=== PATIENT | female | born 1995 | race Caucasian/White ===

== ENCOUNTER 2016-11-26 18:27 | Emergency (ER) | payer OTHER ==
[~2016-11-26] VITALS: Ht 165.1 cm; Wt 74.0 kg
[2016-11-26 18:28] VITALS: BP 147/65; TEMP 97.7; O2SAT 100
--- NOTE | 2016-11-26 19:23 | PD ---
HPI Chief Complaint: Abdominal Pain Time Seen by Provider: 19:23 Travel History International Travel<30 days: No Contact w/Intl Traveler<30days: No Traveled to known affect area: No History of Present Illness HPI 21 year-old female presents to the emergency department for evaluation of epigastric abdominal pain worsening over last 2 weeks. Patient has now become nauseous and has been vomiting throughout the day. Reports chills without fever. No hematemesis or hematochezia. Bowel movements have been normal. No urinary symptoms. Patient's last menstrual cycle was 2 weeks ago and she denies any chance of . Denies any vaginal discharge or bleeding. Pain is a 8 out of 10, constant, sharp, burning. Patient has no history of abdominal surgeries. No other symptoms to report at this time. [facility] Past Medical History Medical History: Denies Significant Hx ?: Not LMP: 11/16/2016 Social History Alcohol Use: No Tobacco Use: No Substance Use: No Allergies-Medications (Allergen,Severity, Reaction): Coded Allergies: No Known Allergies (Unverified , 11/26/16) Reported Meds & Prescriptions Reported Meds & Active Scripts Active No Active Prescriptions or Reported Medications Review of Systems Except as stated in HPI: all other systems reviewed are Neg Physical Exam Narrative GENERAL: Well-nourished female patient, in no acute distress SKIN: Focused skin assessment warm/dry. HEAD: Atraumatic. Normocephalic. EYES: Pupils equal and round. No scleral icterus. No injection or drainage. ENT: No nasal bleeding or discharge. Mucous membranes pink and moist. NECK: Trachea midline. No JVD. CARDIOVASCULAR: Regular rate and rhythm. No murmur appreciated. RESPIRATORY: No accessory muscle use. Clear to auscultation. Breath sounds equal bilaterally. GASTROINTESTINAL: Abdomen soft, nondistended. Mild epigastric tenderness to palpation. Rebound tenderness. No guarding. Hepatic and splenic margins not palpable. MUSCULOSKELETAL: No obvious deformities. No clubbing. No cyanosis. No edema. NEUROLOGICAL: Awake and alert. No obvious cranial nerve deficits. Motor grossly within normal limits. Normal speech. PSYCHIATRIC: Appropriate mood and affect; insight and judgment normal. Data Data Last Documented VS Vital Signs Date Time Temp Pulse Resp B/P Pulse Ox O2 Delivery O2 Flow Rate FiO2 11/26/16 19:35 20 11/26/16 18:28 97.7 55 147/65 100 Orders Complete Blood Count With Diff (11/26/16 19:44) Comprehensive Metabolic Panel (11/26/16 19:44) Lipase (11/26/16 19:44) Urinalysis - C+S If Indicated (11/26/16 19:44) Iv Access Insert/Monitor (11/26/16 19:44) Ecg Monitoring (11/26/16 19:44) Oximetry (11/26/16 19:44) Ondansetron Inj (Zofran Inj) (11/26/16 19:45) Pantoprazole Inj (Protonix Inj) (11/26/16 19:45) Sodium Chlor 0.9% 1000 Ml Inj (Ns 1000 M (11/26/16 19:44) Sodium Chloride 0.9% Flush (Ns Flush) (11/26/16 19:45) Al-Mag Hy-Si 40-40-4 Mg/Ml Liq (Mag-Al P (11/26/16 19:45) Lidocaine 2% Viscous (Xylocaine 2% Visco (11/26/16 19:45) Ed Urine Pregnancytest Poc (11/26/16 19:44) Labs Laboratory Tests Test 11/26/16 19:45 White Blood Count 13.9 TH/MM3 Red Blood Count 5.18 MIL/MM3 Hemoglobin 13.5 GM/DL Hematocrit 40.5 % Mean Corpuscular Volume 78.1 FL Mean Corpuscular Hemoglobin 26.1 PG Mean Corpuscular Hemoglobin 33.4 % Concent Red Cell Distribution Width 15.2 % Platelet Count 297 TH/MM3 Mean Platelet Volume 9.6 FL Neutrophils (%) (Auto) 79.0 % Lymphocytes (%) (Auto) 14.9 % Monocytes (%) (Auto) 5.6 % Eosinophils (%) (Auto) 0.2 % Basophils (%) (Auto) 0.3 % Neutrophils # (Auto) 11.0 TH/MM3 Lymphocytes # (Auto) 2.1 TH/MM3 Monocytes # (Auto) 0.8 TH/MM3 Eosinophils # (Auto) 0.0 TH/MM3 Basophils # (Auto) 0.0 TH/MM3 CBC Comment DIFF FINAL Differential Comment Urine Color YELLOW Urine Turbidity HAZY Urine pH 6.5 Urine Specific [place] 1.024 Urine Protein TRACE mg/dL Urine Glucose (UA) NEG mg/dL Urine Ketones 150 mg/dL Urine Occult Blood NEG Urine Nitrite NEG Urine Bilirubin NEG Urine Urobilinogen 2.0 MG/DL Urine Leukocyte Esterase TRACE Urine RBC 1 /hpf Urine WBC 2 /hpf Urine Squamous Epithelial 9 /hpf Cells Urine Bacteria RARE /hpf Urine Mucus FEW /lpf Microscopic Urinalysis Comment CULT NOT INDICATED MDM Medical Decision Making Medical Screen Exam Complete: Yes Emergency Medical Condition: Yes Medical Record Reviewed: Yes Differential Diagnosis Gastritis versus pancreatitis versus cholecystitis versus cholelithiasis versus biliary colic Narrative Course 21 year-old female presents to emergency department for evaluation of epigastric pain. Patient appears overall well. Her vital signs are stable. IV access and lab work are obtained. Patient is given IV fluids, antiemetic, and GI cocktail. CBC is with mild leukocytosis of 13.9. CMP is pending. Urinalysis is hazy with 150 ketones, trace leukocyte esterase, rare bacteria, few mucus. Culture is not indicated. 2044 patient is signed out to Dr. morejon who will assume care at this time. Disposition will pend his judgment. Scripts No Active Prescriptions or Reported Meds Condition: Stable Simran Lacy Nov 26, 2016 19:23
[2016-11-26] MEDS ORDERED: SODIUM CHLOR 0.9% 1000 ML INJ 1,000 ML IV SCH (19:44)
[2016-11-26] MEDS ORDERED: ALUMINUM/MAGNESIUM/SIMETH 30 ML CUP PO ONE (19:45)
[2016-11-26] MEDS ORDERED: LIDOCAINE VISCOUS 2% SOLN 15 ML UDC PO ONE (19:45)
[2016-11-26] MEDS ORDERED: PANTOPRAZOLE SODIUM 40 MG VIAL IVP ONE (19:45)
[2016-11-26] MEDS ORDERED: ONDANSETRON HCL 4 MG/2 ML VIAL IVP ONE (19:45)
[2016-11-26] MEDS ORDERED: SODIUM CHLORIDE 0.9% FLUSH 10 ML FLUSH IV FLUSH PRN (19:45)
[2016-11-26 20:00] VITALS: O2SAT 99
[2016-11-26 20:36] LABS: BASOPHIL % 0.3 % (0.0-2.0); EOSINOPHIL % 0.2 % (0.0-4.0); HEMATOCRIT 40.5 % (35.0-46.0); HEMO FLAGS DIFF FINAL; LYMPH % 14.9 % (9.0-44.0); LYMPHOCYTE # 2.1 TH/MM3 (1.0-4.8); MEAN CELL VOLUME 78.1 FL (80.0-100.0); MEAN CORPUSCULAR HEMOGLOBIN 26.1 PG (27.0-34.0); MEAN CORPUSCULAR HGB CONC 33.4 % (32.0-36.0); MONO % 5.6 % (0.0-8.0); PLATELET COUNT 297 TH/MM3 (150-450); RED BLOOD COUNT 5.18 MIL/MM3 (4.00-5.30); RED CELL DISTRIBUTION WIDTH 15.2 % (11.6-17.2); WHITE BLOOD COUNT 13.9 TH/MM3 (4.0-11.0)
[2016-11-26 20:42] LABS: BACTERIA, URINE RARE /hpf; BLOOD, URINE NEG (NEG); COMMENT (UR) CULT NOT INDICATED; CULTURE IF INDICATED CULT NOT INDICATED; GLUCOSE,URINE NEG (NEG); KETONE, URINE 150 mg/dL (NEG); MUCUS URINE FEW /lpf (OCC); NITRITE,URINE NEG (NEG); PH, URINE 6.5 (5.0-8.5); SQUAMOUS EPITHELIAL CELL URINE 9 /hpf (0-5); URINE COLOR YELLOW (YELLW/STRAW)
[2016-11-26 21:00] LABS: ANION GAP 13 MEQ/L (5-15); AST (GOT) 35 U/L (16-38); BICARBONATE 23.1 MEQ/L (21.0-32.0); BLOOD UREA NITROGEN 9 MG/DL (7-18); CHLORIDE 103 MEQ/L (98-107); GLOMERULAR FILTRATION RATE 73 ML/MIN (>89); SODIUM (NA) 139 MEQ/L (136-145)
[2016-11-26 21:01] LABS: POTASSIUM 3.7 MEQ/L (3.5-5.1)
[2016-11-26 21:03] LABS: ALKALINE PHOSPHATASE 72 U/L (45-117); ALT (GPT) 24 U/L (9-42); TOTAL BILIRUBIN ADULT 0.9 MG/DL (0.2-1.0)
[2016-11-26] MEDS ORDERED: ZOFR4TAB3 SL (21:16)
[2016-11-26] MEDS ORDERED: OMEP20TA PO (21:16)
--- NOTE | 2016-11-26 21:16 | PD ---
Data Data Last Documented VS Vital Signs Date Time Temp Pulse Resp B/P Pulse Ox O2 Delivery O2 Flow Rate FiO2 11/26/16 22:00 69 20 102/54 98 11/26/16 18:28 97.7 Orders Complete Blood Count With Diff (11/26/16 19:44) Comprehensive Metabolic Panel (11/26/16 19:44) Lipase (11/26/16 19:44) Urinalysis - C+S If Indicated (11/26/16 19:44) Iv Access Insert/Monitor (11/26/16 19:44) Ecg Monitoring (11/26/16 19:44) Oximetry (11/26/16 19:44) Ondansetron Inj (Zofran Inj) (11/26/16 19:45) Pantoprazole Inj (Protonix Inj) (11/26/16 19:45) Sodium Chlor 0.9% 1000 Ml Inj (Ns 1000 M (11/26/16 19:44) Sodium Chloride 0.9% Flush (Ns Flush) (11/26/16 19:45) Al-Mag Hy-Si 40-40-4 Mg/Ml Liq (Mag-Al P (11/26/16 19:45) Lidocaine 2% Viscous (Xylocaine 2% Visco (11/26/16 19:45) Ed Urine Pregnancytest Poc (11/26/16 19:44) Labs Laboratory Tests Test 11/26/16 19:45 White Blood Count 13.9 TH/MM3 Red Blood Count 5.18 MIL/MM3 Hemoglobin 13.5 GM/DL Hematocrit 40.5 % Mean Corpuscular Volume 78.1 FL Mean Corpuscular Hemoglobin 26.1 PG Mean Corpuscular Hemoglobin 33.4 % Concent Red Cell Distribution Width 15.2 % Platelet Count 297 TH/MM3 Mean Platelet Volume 9.6 FL Neutrophils (%) (Auto) 79.0 % Lymphocytes (%) (Auto) 14.9 % Monocytes (%) (Auto) 5.6 % Eosinophils (%) (Auto) 0.2 % Basophils (%) (Auto) 0.3 % Neutrophils # (Auto) 11.0 TH/MM3 Lymphocytes # (Auto) 2.1 TH/MM3 Monocytes # (Auto) 0.8 TH/MM3 Eosinophils # (Auto) 0.0 TH/MM3 Basophils # (Auto) 0.0 TH/MM3 CBC Comment DIFF FINAL Differential Comment Urine Color YELLOW Urine Turbidity HAZY Urine pH 6.5 Urine Specific [place] 1.024 Urine Protein TRACE mg/dL Urine Glucose (UA) NEG mg/dL Urine Ketones 150 mg/dL Urine Occult Blood NEG Urine Nitrite NEG Urine Bilirubin NEG Urine Urobilinogen 2.0 MG/DL Urine Leukocyte Esterase TRACE Urine RBC 1 /hpf Urine WBC 2 /hpf Urine Squamous Epithelial 9 /hpf Cells Urine Bacteria RARE /hpf Urine Mucus FEW /lpf Microscopic Urinalysis Comment CULT NOT INDICATED Sodium Level 139 MEQ/L Potassium Level 3.7 MEQ/L Chloride Level 103 MEQ/L Carbon Dioxide Level 23.1 MEQ/L Anion Gap 13 MEQ/L Blood Urea Nitrogen 9 MG/DL Creatinine 0.97 MG/DL Estimat Glomerular Filtration 73 ML/MIN Rate Random Glucose 80 MG/DL Calcium Level 9.6 MG/DL Total Bilirubin 0.9 MG/DL Aspartate Amino Transf 35 U/L (AST/SGOT) Alanine Aminotransferase 24 U/L (ALT/SGPT) Alkaline Phosphatase 72 U/L Total Protein 8.5 GM/DL Albumin 4.6 GM/DL Lipase 60 U/L MDM Supervised Visit with REN: Yes Narrative Course Patient care assumed from Simran GUTIERRES at 2100. Patient on my assessment states she is feeling 100% better and has no complaints currently. She was given several medications by Simran daily prior to my assessment. Her abdomen is benign at this time. Her labs show white count of 13,000. The remainder of her laboratory workup is negative. Her pain was majority epigastric in nature. He has no plantar vaginal bleeding vaginal discharge. She would like to go home currently and follow up with her primary care provider. 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 The patient was asked about this and states that that was ancient history and she doesn't do that anymore. She denied any suicidal homicidal ideation. She is quite pleasant currently. She is stable for discharge. Discussed with her symptomatically management at home possible GERD discussed return to ED criteria. No indication for CT imaging at this time. Diagnosis Primary Impression: Epigastric abdominal pain Additional Impression: GERD (gastroesophageal reflux disease) Med/Other Pt SpecificInfo: Prescription(s) given Scripts Ondansetron Odt (Zofran Odt)4 Mg Tab4 Mg SL Q6HR PRN (Nausea/Vomiting) #30 TAB Ref 0 Prov:Jatinder Boykin MD 11/26/16 Omeprazole 20 Mg Tab20 Mg PO DAILY #30 TAB Ref 0 Prov:Jatinder Boykin MD 11/26/16 Disposition: 01 DISCHARGE HOME Condition: Stable Jatinder Boykin MD Nov 26, 2016 21:16
[2016-11-26 22:00] VITALS: BP 102/54
== END 2016-11-26 22:11 | disposition home or self-care (01) ==
LOC: NEPD 18:27
DX: R10.13 Epigastric pain (principal); K21.9 Gastro-esophageal reflux disease without esophagitis; D72.829 Elevated white blood cell count, unspecified
CPT/HCPCS: 80053; 81001; 83690; 84703; 85025; 96361; 96374; 96375; 99284; C9113; J2405; J7030